=== PATIENT | female | born 1990 | race Two or more races ===

== ENCOUNTER 2022-10-06 10:47 | Inpatient (IN) | payer MEDICAID, OTHER ==
[~2022-10-06] VITALS: Ht 154.9 cm; Wt 50.0 kg
[2022-10-06] MEDS ORDERED: SODIUM CHLORIDE 0.9% 1,000 ML IV ONE ×2 (11:15→14:00)
[2022-10-06 11:49] LABS: Albumin 2.3 g/dL (3.4-5.0); Calcium 7.7 mg/dL (8.5-10.1); Potassium 4.7 mmol/L (3.5-5.1)
[2022-10-06 11:52] LABS: BUN/Creatinine Ratio 34.1; Bilirubin, Total 0.4 mg/dL (0.2-1.0); Total Protein 5.9 g/dL (6.4-8.2)
[2022-10-06 12:19] LABS: Hemoglobin 11.5 g/dL (12.2-16.2); Red Blood Cells 3.73 10^6/uL (4.0-5.20); White Blood Cell 8.2 10^3/uL (4.4-10.8)
[2022-10-06 12:23] LABS: Red Cell Distribution Width 20.7 % (11.8-14.3)
[2022-10-06 12:24] LABS: Basophils % (manual) 0 (0.0-2.0); Blast Cells 0; Eosinophils % (manual) 0 (0-7); Promyelocytes % 0; Reactive Lymphocytes 0
[2022-10-06 13:46] LABS: Band Neutrophils % (manual) 51; Lymphocytes % (manual) 7 (10.0-50.0); Metamyelocytes % 3; Monocytes % (manual) 9 (0-12); Myelocytes % 4
[2022-10-06] MEDS ORDERED: ALBUMIN 25% 100 ML IV ONE ×2 (14:07→14:15)
[2022-10-06] MEDS ORDERED: NOREPINEPHRINE 8 MG/250ML KIT 250 ML IV ONE (15:01)
[2022-10-06] MEDS: NOREPINEPHRINE 8 MG/250ML KIT 250 ML IV SCH (15:28)
[2022-10-06 15:43] LABS: Basophils # (auto) 0 10 ^3/uL (0-0.2); Basophils % (auto) 0.1 % (0.0-2.0); Eosinophils # (auto) 0 10 ^3/uL (0-0.8); Hematocrit 27.3 % (36.0-46.0); Hemoglobin 8.8 g/dL (12.2-16.2); Lymphocytes # (auto) 0.7 10 ^3/uL (0.4-5.4); Lymphocytes % (auto) 11.6 % (10.0-50.0); Mean Corpuscular Hemoglobin 30.6 pg (28.0-32.0); Mean Corpuscular Hgb Conc. 32.3 g/dL (32.0-36.0); Mean Corpuscular Volume 94.8 fL (80.0-100.0); Monocytes # (auto) 0.4 10 ^3/uL (0-1.3); Monocytes % (auto) 5.8 % (0.0-12.0); Neutrophils # (auto) 5.3 10 ^3/uL (1.6-8.6); Neutrophils % (auto) 82.5 % (37.0-80.0); Nucleated Red Blood Cells % 0.1 %; Red Blood Cells 2.87 10^6/uL (4.0-5.20); White Blood Cell 6.4 10^3/uL (4.4-10.8)
[2022-10-06 15:44] LABS: Red Cell Distribution Width 20.4 % (11.8-14.3)
[2022-10-06 16:10] LABS: INR 1.15 (0.9-1.15); Partial Thromboplastin Time 44.1 sec (24.6-33.4)
[2022-10-06] MEDS ORDERED: DOPamine 1600MCG/ML D5W 250 ML IV ONE (16:29)
[2022-10-06] MEDS: DOPamine 1600MCG/ML D5W 250 ML IV SCH (16:50)
[2022-10-06] MEDS ORDERED: DOCUSATE SOD 100 MG CAP PO PRN (17:30)
[2022-10-06] MEDS: SODIUM CHLORIDE 0.9% 1,000 ML IV SCH (17:30)
[2022-10-06] MEDS ORDERED: HYDROcodone-ACET 10/325MG TAB PO PRN (18:15)
[2022-10-06] MEDS: Ensure Enlive Chocolate 8oz Bottle PO SCH (18:40)
[2022-10-06 19:01] LABS: Urine Bacteria NONE SEEN /hpf (None Seen); Urine Blood Negative /uL (Negative); Urine Hyaline Cast FEW /lpf (0 - 2); Urine Mucus FEW (None Seen); Urine Specific Gravity 1.019 (1.001-1.035); Urine WBC 1 /hpf (0 - 5)
[2022-10-06] MEDS ORDERED: cefTRIAXone 1GM/50ML D5W 50 ML IV ONE (20:00)
[2022-10-06] MEDS: OXYCODONE W/ ACETAMINOPHEN 5/325MG TABLET PO PRN (21:03)
[2022-10-07] VITALS (46 sets, daily range): BP systolic 84–134; BP diastolic 57–88
[2022-10-07] MEDS: SODIUM CHLORIDE 0.9% 1,000 ML IV SCH (03:30)
[2022-10-07 06:02] LABS: Basophils # (auto) 0 10 ^3/uL (0-0.2); Basophils % (auto) 0.3 % (0.0-2.0); Eosinophils # (auto) 0 10 ^3/uL (0-0.8); Eosinophils % (auto) 0.1 % (0.0-7.0); Hemoglobin 10.3 g/dL (12.2-16.2); Lymphocytes # (auto) 0.6 10 ^3/uL (0.4-5.4); Lymphocytes % (auto) 18.3 % (10.0-50.0); Mean Corpuscular Hemoglobin 30.9 pg (28.0-32.0); Mean Corpuscular Hgb Conc. 32.1 g/dL (32.0-36.0); Mean Corpuscular Volume 96.3 fL (80.0-100.0); Monocytes # (auto) 0.3 10 ^3/uL (0-1.3); Monocytes % (auto) 9.6 % (0.0-12.0); Neutrophils # (auto) 2.2 10 ^3/uL (1.6-8.6); Neutrophils % (auto) 71.7 % (37.0-80.0); Nucleated Red Blood Cells % 0.1 %; Red Blood Cells 3.32 10^6/uL (4.0-5.20)
[2022-10-07 06:11] LABS: Albumin 2.4 g/dL (3.4-5.0); BUN/Creatinine Ratio 54.7; Calcium 7.6 mg/dL (8.5-10.1); Potassium 4.1 mmol/L (3.5-5.1)
[2022-10-07 06:14] LABS: Bilirubin, Total 0.7 mg/dL (0.2-1.0); Total Protein 5.6 g/dL (6.4-8.2)
[2022-10-07] MEDS: OXYCODONE W/ ACETAMINOPHEN 5/325MG TABLET PO PRN ×2 (06:39→15:11)
[2022-10-07 06:40] LABS: Red Cell Distribution Width 21.1 % (11.8-14.3)
[2022-10-07] MEDS: Ensure Enlive Chocolate 8oz Bottle PO SCH ×3 (08:23→18:00)
[2022-10-07] MEDS: cefTRIAXone 1GM/50ML D5W 50 ML IV SCH (09:20)
[2022-10-07] MEDS: PANTOPRAZOLE 40 MG/10 ML VIAL INJ IV SCH (09:20)
[2022-10-07] MEDS: ONDANSETRON HCL 4 MG/2 ML VIAL IV PRN ×3 (09:20→21:16)
[2022-10-07] MEDS: MORPHINE SULFATE INJ 2 MG/ml SYRG IV PRN (13:11)
[2022-10-07 14:56] LABS: Protein, Urine 61.8 mg/dL (0.0-11.9)
[2022-10-07] MEDS: NOREPINEPHRINE 8 MG/250ML KIT 250 ML IV SCH ×2 (15:09→20:25)
[2022-10-07] MEDS: DOPamine 1600MCG/ML D5W 250 ML IV SCH (15:10)
[2022-10-07] MEDS: SODIUM BICARBONATE 50ML VIAL 50 ML in SOD CHL 0.45% 1,000 ML IV SCH (16:36)
[2022-10-07] MEDS ORDERED: LEVO200T PO (19:58)
[2022-10-07] MEDS ORDERED: OLAN5TAB4 PO (19:58)
[2022-10-07] MEDS: oxyCODONE ER 10 MG TAB PO SCH (22:01)
[2022-10-08] VITALS (95 sets, daily range): BP systolic 65–123; BP diastolic 36–90
[2022-10-08] MEDS: NOREPINEPHRINE 8 MG/250ML KIT 250 ML IV SCH ×5 (02:00→22:14)
[2022-10-08] MEDS: OXYCODONE W/ ACETAMINOPHEN 5/325MG TABLET PO PRN ×2 (02:52→18:49)
[2022-10-08] MEDS: ONDANSETRON HCL 4 MG/2 ML VIAL IV PRN ×3 (02:58→15:14)
[2022-10-08] MEDS: DOPamine 1600MCG/ML D5W 250 ML IV SCH (04:40)
[2022-10-08] MEDS: SODIUM BICARBONATE 50ML VIAL 50 ML in SOD CHL 0.45% 1,000 ML IV SCH (04:40)
[2022-10-08] MEDS ORDERED: ALBUMIN 5% 250 ML IV ONE (07:00)
[2022-10-08 07:45] LABS: Basophils # (auto) 0 10 ^3/uL (0-0.2); Basophils % (auto) 0.2 % (0.0-2.0); Eosinophils # (auto) 0 10 ^3/uL (0-0.8); Eosinophils % (auto) 0.2 % (0.0-7.0); Hemoglobin 8.7 g/dL (12.2-16.2); Lymphocytes # (auto) 0.7 10 ^3/uL (0.4-5.4); Lymphocytes % (auto) 29.3 % (10.0-50.0); Mean Corpuscular Hemoglobin 29.7 pg (28.0-32.0); Mean Corpuscular Hgb Conc. 32.2 g/dL (32.0-36.0); Mean Corpuscular Volume 92.5 fL (80.0-100.0); Monocytes # (auto) 0.2 10 ^3/uL (0-1.3); Monocytes % (auto) 8.1 % (0.0-12.0); Neutrophils # (auto) 1.4 10 ^3/uL (1.6-8.6); Neutrophils % (auto) 62.2 % (37.0-80.0); Nucleated Red Blood Cells % 0.2 %; Red Blood Cells 2.92 10^6/uL (4.0-5.20); Red Cell Distribution Width 20.8 % (11.8-14.3); White Blood Cell 2.3 10^3/uL (4.4-10.8)
[2022-10-08 08:02] LABS: Albumin 2.2 g/dL (3.4-5.0); BUN/Creatinine Ratio 62.5; Calcium 7.5 mg/dL (8.5-10.1); Magnesium 1.7 mg/dL (1.6-2.6); Potassium 3.6 mmol/L (3.5-5.1)
[2022-10-08 08:05] LABS: Bilirubin, Total 1.4 mg/dL (0.2-1.0); Phosphorus 1.5 mg/dL (2.5-4.90); Total Protein 4.9 g/dL (6.4-8.2)
[2022-10-08] MEDS: cefTRIAXone 1GM/50ML D5W 50 ML IV SCH (09:13)
[2022-10-08] MEDS: Ensure Enlive Chocolate 8oz Bottle PO SCH ×3 (09:13→18:49)
[2022-10-08] MEDS ORDERED: POTASSIUM PHOSPHATE 22 MEQ in SODIUM CHL 0.9% 100 ML IV ONE (09:45)
[2022-10-08] MEDS: MAGNESIUM SULFATE 1GM/100ML 100 ML IV SCH ×2 (09:59→11:11)
[2022-10-08] MEDS: oxyCODONE ER 10 MG TAB PO SCH ×2 (10:00→21:57)
[2022-10-08] MEDS ORDERED: POTASSIUM PHOSPHATE 44 MEQ in D5W 5% 250 ML IV ONE (10:00)
[2022-10-08] MEDS: PANTOPRAZOLE 40 MG/10 ML VIAL INJ IV SCH (10:01)
[2022-10-08] MEDS: SODIUM CHLORIDE 0.9% 1,000 ML IV SCH ×2 (10:02→22:13)
[2022-10-08] MEDS ORDERED: LEVOTHYROXINE SODIUM 25 MCG TAB PO ONE (13:15)
[2022-10-08] MEDS ORDERED: LEVOTHYROXINE SODIUM 100 MCG TAB PO ONE (14:30)
[2022-10-08] MEDS: PROMETHAZINE HCL 25 MG/ML 1ML IV PRN ×2 (16:56→22:24)
[2022-10-08] MEDS: OLANZapine 5 MG TAB PO SCH (21:57)
[2022-10-09] VITALS (96 sets, daily range): BP systolic 83–109; BP diastolic 51–77
[2022-10-09] MEDS: NOREPINEPHRINE 8 MG/250ML KIT 250 ML IV SCH ×2 (04:42→20:36)
[2022-10-09] MEDS: OXYCODONE W/ ACETAMINOPHEN 5/325MG TABLET PO PRN ×2 (05:14→18:09)
[2022-10-09] MEDS: LEVOTHYROXINE SODIUM 100 MCG TAB PO SCH (07:51)
[2022-10-09] MEDS: Ensure Enlive Chocolate 8oz Bottle PO SCH ×3 (08:00→18:04)
[2022-10-09] MEDS: PANTOPRAZOLE 40 MG/10 ML VIAL INJ IV SCH (09:24)
[2022-10-09] MEDS: cefTRIAXone 1GM/50ML D5W 50 ML IV SCH (09:24)
[2022-10-09] MEDS: PROMETHAZINE HCL 25 MG/ML 1ML IV PRN ×3 (09:25→20:36)
[2022-10-09] MEDS: oxyCODONE ER 10 MG TAB PO SCH ×2 (09:26→21:58)
[2022-10-09 10:28] LABS: Calcium 6.8 mg/dL (8.5-10.1); Potassium 3.4 mmol/L (3.5-5.1)
[2022-10-09 10:31] LABS: BUN/Creatinine Ratio 46.4
[2022-10-09 12:00] LABS: Basophils # (auto) 0 10 ^3/uL (0-0.2); Eosinophils # (auto) 0 10 ^3/uL (0-0.8); Eosinophils % (auto) 0.1 % (0.0-7.0); Hematocrit 31.8 % (36.0-46.0); Lymphocytes # (auto) 0.7 10 ^3/uL (0.4-5.4); Lymphocytes % (auto) 20.5 % (10.0-50.0); Mean Corpuscular Hemoglobin 31.3 pg (28.0-32.0); Mean Corpuscular Hgb Conc. 31.3 g/dL (32.0-36.0); Mean Corpuscular Volume 99.9 fL (80.0-100.0); Monocytes # (auto) 0.4 10 ^3/uL (0-1.3); Monocytes % (auto) 13.1 % (0.0-12.0); Neutrophils # (auto) 2.2 10 ^3/uL (1.6-8.6); Neutrophils % (auto) 66.3 % (37.0-80.0); Nucleated Red Blood Cells % 0.2 %; Red Blood Cells 3.18 10^6/uL (4.0-5.20); White Blood Cell 3.4 10^3/uL (4.4-10.8)
[2022-10-09 12:19] LABS: Red Cell Distribution Width 21.7 % (11.8-14.3)
[2022-10-09] MEDS: POTASSIUM CHL 20MEQ/100ML 100 ML IV SCH ×2 (15:57→17:45)
[2022-10-09] MEDS: DOPamine 1600MCG/ML D5W 250 ML IV SCH (16:30)
[2022-10-09] MEDS: SODIUM CHLORIDE 0.9% 1,000 ML IV SCH (18:03)
[2022-10-09] MEDS: OLANZapine 5 MG TAB PO SCH (21:58)
[2022-10-10] VITALS (78 sets, daily range): BP systolic 82–107; BP diastolic 44–73
[2022-10-10] MEDS: MORPHINE SULFATE INJ 2 MG/ml SYRG IV PRN ×2 (01:17→05:37)
[2022-10-10] MEDS: PROMETHAZINE HCL 25 MG/ML 1ML IV PRN ×3 (01:20→15:01)
[2022-10-10] MEDS: SODIUM CHLORIDE 0.9% 1,000 ML IV SCH ×3 (02:50→14:59)
[2022-10-10 04:03] LABS: Anion Gap 6 (5-15); BUN/Creatinine Ratio 41.9; Basophils # (auto) 0 10 ^3/uL (0-0.2); Basophils % (auto) 0.1 % (0.0-2.0); Blood Urea Nitrogen 13 mg/dL (7-18); Calcium 7.7 mg/dL (8.5-10.1); Carbon Dioxide 21 mmol/L (21-32); Chloride 121 mmol/L (98-107); Eosinophils # (auto) 0 10 ^3/uL (0-0.8); Eosinophils % (auto) 0.1 % (0.0-7.0); GFR African American 315 mL/min; GFR Non-African American 261 mL/min; Glucose 69 mg/dL (74-106); Hematocrit 31.7 % (36.0-46.0); Lymphocytes # (auto) 0.7 10 ^3/uL (0.4-5.4); Lymphocytes % (auto) 14.3 % (10.0-50.0); Mean Corpuscular Hemoglobin 31.3 pg (28.0-32.0); Mean Corpuscular Hgb Conc. 31.4 g/dL (32.0-36.0); Mean Corpuscular Volume 99.9 fL (80.0-100.0); Monocytes # (auto) 0.4 10 ^3/uL (0-1.3); Monocytes % (auto) 8.8 % (0.0-12.0); Neutrophils # (auto) 3.5 10 ^3/uL (1.6-8.6); Neutrophils % (auto) 76.7 % (37.0-80.0); Nucleated Red Blood Cells % 0.1 %; Potassium 3.9 mmol/L (3.5-5.1); Red Blood Cells 3.18 10^6/uL (4.0-5.20); Sodium 148 mmol/L (136-145); White Blood Cell 4.6 10^3/uL (4.4-10.8)
[2022-10-10 04:10] LABS: Red Cell Distribution Width 21.6 % (11.8-14.3)
[2022-10-10] MEDS: LEVOTHYROXINE SODIUM 100 MCG TAB PO SCH (07:00)
[2022-10-10] MEDS: Ensure Enlive Chocolate 8oz Bottle PO SCH ×3 (08:00→18:02)
[2022-10-10] MEDS: oxyCODONE ER 10 MG TAB PO SCH ×2 (09:03→21:30)
[2022-10-10] MEDS: cefTRIAXone 1GM/50ML D5W 50 ML IV SCH (09:03)
[2022-10-10] MEDS: PANTOPRAZOLE 40 MG/10 ML VIAL INJ IV SCH (09:03)
[2022-10-10] MEDS ORDERED: LOPERAMIDE HCL 2 MG CAP/TAB PO ONE (12:15)
[2022-10-10] MEDS: DOPamine 1600MCG/ML D5W 250 ML IV SCH (16:30)
[2022-10-10] MEDS: LOPERAMIDE HCL 2 MG CAP/TAB PO PRN (18:01)
[2022-10-10] MEDS: OXYCODONE W/ ACETAMINOPHEN 5/325MG TABLET PO PRN (18:06)
[2022-10-10] MEDS: OLANZapine 5 MG TAB PO SCH (21:30)
[2022-10-11] MEDS: OXYCODONE W/ ACETAMINOPHEN 5/325MG TABLET PO PRN (01:53)
[2022-10-11] MEDS: PROMETHAZINE HCL 25 MG/ML 1ML IV PRN ×2 (02:02→20:00)
[2022-10-11] MEDS: LOPERAMIDE HCL 2 MG CAP/TAB PO PRN (02:29)
[2022-10-11] MEDS: LEVOTHYROXINE SODIUM 100 MCG TAB PO SCH (06:28)
[2022-10-11] MEDS: Ensure Enlive Chocolate 8oz Bottle PO SCH ×3 (08:00→18:00)
[2022-10-11] MEDS: SODIUM CHLORIDE 0.9% 1,000 ML IV SCH (08:15)
[2022-10-11] MEDS: cefTRIAXone 1GM/50ML D5W 50 ML IV SCH (10:11)
[2022-10-11] MEDS: PANTOPRAZOLE 40 MG/10 ML VIAL INJ IV SCH (10:12)
[2022-10-11] MEDS: oxyCODONE ER 10 MG TAB PO SCH ×2 (10:13→21:28)
[2022-10-11] MEDS: MORPHINE SULFATE INJ 2 MG/ml SYRG IV PRN (14:29)
[2022-10-11] MEDS: SOD CHL 0.45% 1,000 ML IV SCH (14:45)
[2022-10-11] MEDS: NOREPINEPHRINE 8 MG/250ML KIT 250 ML IV SCH (15:00)
[2022-10-11] MEDS: DOPamine 1600MCG/ML D5W 250 ML IV SCH (16:30)
[2022-10-11] MEDS: OLANZapine 5 MG TAB PO SCH (21:29)
[2022-10-11 22:00] VITALS: BP 93/56
[2022-10-12] MEDS: SOD CHL 0.45% 1,000 ML IV SCH ×2 (00:17→10:30)
[2022-10-12] MEDS: OXYCODONE W/ ACETAMINOPHEN 5/325MG TABLET PO PRN (01:47)
[2022-10-12 05:00] VITALS: BP 91/61
[2022-10-12 06:11] LABS: Hematocrit 25.5 % (36.0-46.0); Hemoglobin 8.1 g/dL (12.2-16.2); Mean Corpuscular Hgb Conc. 31.8 g/dL (32.0-36.0); Mean Corpuscular Volume 97.3 fL (80.0-100.0); Red Blood Cells 2.62 10^6/uL (4.0-5.20); Red Cell Distribution Width 21.9 % (11.8-14.3); White Blood Cell 7.2 10^3/uL (4.4-10.8)
[2022-10-12 06:13] LABS: Basophils % (manual) 0 (0.0-2.0); Blast Cells 0; Eosinophils % (manual) 0 (0-7); Promyelocytes % 0; Reactive Lymphocytes 0
[2022-10-12] MEDS: LEVOTHYROXINE SODIUM 100 MCG TAB PO SCH (06:30)
[2022-10-12] MEDS: PROMETHAZINE HCL 25 MG/ML 1ML IV PRN (06:30)
[2022-10-12 06:31] LABS: Potassium 4.1 mmol/L (3.5-5.1)
[2022-10-12 06:39] LABS: BUN/Creatinine Ratio 42.1; Bilirubin, Total 2.2 mg/dL (0.2-1.0); Calcium 7.3 mg/dL (8.5-10.1); Total Protein 4.9 g/dL (6.4-8.2)
[2022-10-12 08:59] LABS: Band Neutrophils % (manual) 24; Lymphocytes % (manual) 7 (10.0-50.0); Metamyelocytes % 2; Monocytes % (manual) 2 (0-12); Myelocytes % 1
[2022-10-12 09:00] VITALS: BP 93/58
[2022-10-12] MEDS: PANTOPRAZOLE 40 MG/10 ML VIAL INJ IV SCH (09:22)
[2022-10-12] MEDS: cefTRIAXone 1GM/50ML D5W 50 ML IV SCH (09:22)
[2022-10-12] MEDS: oxyCODONE ER 10 MG TAB PO SCH ×2 (09:22→21:34)
[2022-10-12] MEDS: Ensure Enlive Chocolate 8oz Bottle PO SCH ×3 (09:23→18:00)
[2022-10-12] MEDS: LOPERAMIDE 1 mg/7.5ml ORAL soln PO PRN (09:24)
[2022-10-12 13:00] VITALS: BP 95/59
[2022-10-12 13:55] LABS: % Iron Saturation 26.8 % (15-50)
[2022-10-12] MEDS: MORPHINE SULFATE INJ 2 MG/ml SYRG IV PRN ×2 (13:57→20:50)
[2022-10-12] MEDS: D5W/SOD CHL 0.45% 1,000 ML IV SCH (14:06)
[2022-10-12 17:00] VITALS: BP 90/52
[2022-10-12] MEDS: OLANZapine 5 MG TAB PO SCH (21:35)
[2022-10-12 22:00] VITALS: BP 90/57
[2022-10-12] MEDS ORDERED: LOPERAMIDE HCL 2 MG CAP/TAB ONE (23:48)
[2022-10-13] MEDS: LOPERAMIDE 1 mg/7.5ml ORAL soln PO PRN (00:08)
[2022-10-13 05:00] VITALS: BP 83/49
[2022-10-13] MEDS: LEVOTHYROXINE SODIUM 100 MCG TAB PO SCH (06:08)
[2022-10-13] MEDS: MORPHINE SULFATE INJ 2 MG/ml SYRG IV PRN (06:08)
[2022-10-13 09:00] VITALS: BP 89/54
[2022-10-13] MEDS: PANTOPRAZOLE 40 MG/10 ML VIAL INJ IV SCH (09:25)
[2022-10-13] MEDS: cefTRIAXone 1GM/50ML D5W 50 ML IV SCH (09:25)
[2022-10-13] MEDS: oxyCODONE ER 10 MG TAB PO SCH ×2 (09:26→22:01)
[2022-10-13] MEDS: Ensure Enlive Chocolate 8oz Bottle PO SCH ×3 (09:31→18:07)
[2022-10-13] MEDS: D5W/SOD CHL 0.45% 1,000 ML IV SCH ×3 (12:23→22:21)
[2022-10-13 13:00] VITALS: BP 85/53
[2022-10-13] MEDS: PROMETHAZINE HCL 25 MG/ML 1ML IV PRN ×2 (13:37→22:12)
[2022-10-13] MEDS: OXYCODONE W/ ACETAMINOPHEN 5/325MG TABLET PO PRN (13:38)
[2022-10-13 17:00] VITALS: BP 80/59
[2022-10-13] MEDS ORDERED: D5W/SOD CHL 0.45% 250 ML IV ONE (17:30)
[2022-10-13 22:00] VITALS: BP 88/57
[2022-10-13] MEDS: OLANZapine 5 MG TAB PO SCH (22:01)
[2022-10-14] VITALS (51 sets, daily range): BP systolic 78–99; BP diastolic 47–68
[2022-10-14] MEDS: OXYCODONE W/ ACETAMINOPHEN 5/325MG TABLET PO PRN ×2 (02:50→20:06)
[2022-10-14] MEDS: PROMETHAZINE HCL 25 MG/ML 1ML IV PRN ×2 (03:01→10:14)
[2022-10-14] MEDS: D5W/SOD CHL 0.45% 1,000 ML IV SCH ×2 (06:00→07:54)
[2022-10-14] MEDS: LEVOTHYROXINE SODIUM 100 MCG TAB PO SCH (06:28)
[2022-10-14] MEDS: PANTOPRAZOLE 40 MG/10 ML VIAL INJ IV SCH (10:09)
[2022-10-14] MEDS: Ensure Enlive Chocolate 8oz Bottle PO SCH ×3 (10:09→18:08)
[2022-10-14] MEDS: cefTRIAXone 1GM/50ML D5W 50 ML IV SCH (10:09)
[2022-10-14] MEDS: oxyCODONE ER 10 MG TAB PO SCH ×2 (10:09→21:52)
[2022-10-14] MEDS: NOREPINEPHRINE 8 MG/250ML KIT 250 ML IV SCH (10:33)
[2022-10-14] MEDS: MORPHINE SULFATE INJ 2 MG/ml SYRG IV PRN (13:06)
[2022-10-14 16:28] LABS: Hematocrit 24.5 % (36.0-46.0); Hemoglobin 8.3 g/dL (12.2-16.2); Mean Corpuscular Hemoglobin 31.5 pg (28.0-32.0); Mean Corpuscular Hgb Conc. 33.8 g/dL (32.0-36.0); Mean Corpuscular Volume 93.2 fL (80.0-100.0); Red Blood Cells 2.63 10^6/uL (4.0-5.20); White Blood Cell 6.9 10^3/uL (4.4-10.8)
[2022-10-14 16:29] LABS: Red Cell Distribution Width 21.7 % (11.8-14.3)
[2022-10-14 16:31] LABS: Basophils % (manual) 0 (0.0-2.0); Blast Cells 0; Eosinophils % (manual) 0 (0-7); Metamyelocytes % 0; Myelocytes % 0; Promyelocytes % 0; Reactive Lymphocytes 0
[2022-10-14 16:37] LABS: BUN/Creatinine Ratio 31.7; Calcium 7.6 mg/dL (8.5-10.1); Potassium 3.4 mmol/L (3.5-5.1)
[2022-10-14 17:11] LABS: Band Neutrophils % (manual) 4; Lymphocytes % (manual) 8 (10.0-50.0); Monocytes % (manual) 4 (0-12)
[2022-10-14] MEDS ORDERED: NEOMYCIN-BACITRACIN-POLYM UNITDOSE PKG TOP OINT TOP ONE (19:00)
[2022-10-14] MEDS ORDERED: NEOMYCIN-BACITRACIN-POLYM UNITDOSE PKG TOP OINT TOP SCH (19:15)
[2022-10-14] MEDS: OLANZapine 5 MG TAB PO SCH (21:52)
[2022-10-14] MEDS: LOPERAMIDE 1 mg/7.5ml ORAL soln PO PRN (21:57)
[2022-10-15] VITALS (93 sets, daily range): BP systolic 79–117; BP diastolic 45–87
[2022-10-15] MEDS: D5W/SOD CHL 0.45% 1,000 ML IV SCH ×3 (02:17→21:33)
[2022-10-15] MEDS: LEVOTHYROXINE SODIUM 100 MCG TAB PO SCH (06:40)
[2022-10-15] MEDS: MORPHINE SULFATE INJ 2 MG/ml SYRG IV PRN ×2 (06:44→20:17)
[2022-10-15 06:46] LABS: BUN/Creatinine Ratio 39.1; Calcium 7.5 mg/dL (8.5-10.1)
[2022-10-15 07:04] LABS: Hemoglobin 7.7 g/dL (12.2-16.2); White Blood Cell 5.8 10^3/uL (4.4-10.8)
[2022-10-15 07:06] LABS: Hematocrit 23.5 % (36.0-46.0); Mean Corpuscular Hemoglobin 30.7 pg (28.0-32.0); Mean Corpuscular Hgb Conc. 32.9 g/dL (32.0-36.0); Mean Corpuscular Volume 93.5 fL (80.0-100.0); Red Blood Cells 2.51 10^6/uL (4.0-5.20)
[2022-10-15 07:09] LABS: Red Cell Distribution Width 21.9 % (11.8-14.3)
[2022-10-15 07:10] LABS: Basophils % (manual) 0 (0.0-2.0); Blast Cells 0; Eosinophils % (manual) 0 (0-7); Metamyelocytes % 0; Myelocytes % 0; Promyelocytes % 0; Reactive Lymphocytes 0
[2022-10-15 08:38] LABS: Band Neutrophils % (manual) 8; Lymphocytes % (manual) 18 (10.0-50.0); Monocytes % (manual) 7 (0-12)
[2022-10-15] MEDS: Ensure Enlive Chocolate 8oz Bottle PO SCH ×3 (08:46→18:00)
[2022-10-15] MEDS: OXYCODONE W/ ACETAMINOPHEN 5/325MG TABLET PO PRN ×2 (08:46→13:26)
[2022-10-15] MEDS: cefTRIAXone 1GM/50ML D5W 50 ML IV SCH (08:46)
[2022-10-15] MEDS: PANTOPRAZOLE 40 MG/10 ML VIAL INJ IV SCH (08:46)
[2022-10-15] MEDS: PROMETHAZINE HCL 25 MG/ML 1ML IV PRN (08:46)
[2022-10-15] MEDS: oxyCODONE ER 10 MG TAB PO SCH ×2 (09:36→22:13)
[2022-10-15] MEDS: NOREPINEPHRINE 8 MG/250ML KIT 250 ML IV SCH (09:37)
[2022-10-15] MEDS: ONDANSETRON HCL 4 MG/2 ML VIAL IV PRN ×2 (13:26→20:04)
[2022-10-15 15:14] LABS: INR 1.13 (0.9-1.15); Partial Thromboplastin Time 34.2 sec (24.6-33.4)
[2022-10-15] MEDS: OLANZapine 5 MG TAB PO SCH (22:13)
[2022-10-16] VITALS (96 sets, daily range): BP systolic 84–109; BP diastolic 46–75
[2022-10-16] MEDS: MORPHINE SULFATE INJ 2 MG/ml SYRG IV PRN ×4 (01:24→19:55)
[2022-10-16] MEDS: LEVOTHYROXINE SODIUM 100 MCG TAB PO SCH (06:48)
[2022-10-16 07:05] LABS: BUN/Creatinine Ratio 35.6; Calcium 7.3 mg/dL (8.5-10.1); Potassium 3.2 mmol/L (3.5-5.1)
[2022-10-16] MEDS: cefTRIAXone 1GM/50ML D5W 50 ML IV SCH (08:28)
[2022-10-16] MEDS: Ensure Enlive Chocolate 8oz Bottle PO SCH ×3 (08:28→18:04)
[2022-10-16] MEDS: D5W/SOD CHL 0.45% 1,000 ML IV SCH ×2 (08:29→18:00)
[2022-10-16] MEDS: PANTOPRAZOLE 40 MG/10 ML VIAL INJ IV SCH (09:30)
[2022-10-16] MEDS: oxyCODONE ER 10 MG TAB PO SCH ×2 (09:30→22:00)
[2022-10-16] MEDS: ONDANSETRON HCL 4 MG/2 ML VIAL IV PRN ×3 (09:31→19:53)
[2022-10-16] MEDS: NOREPINEPHRINE 8 MG/250ML KIT 250 ML IV SCH ×2 (10:00→13:05)
[2022-10-16 10:28] LABS: Magnesium 1.9 mg/dL (1.6-2.6); Phosphorus 2.4 mg/dL (2.5-4.90)
[2022-10-16] MEDS ORDERED: SODIUM PHOSP 40 MEQ in D5W 5% 250 ML IV ONE (11:00)
[2022-10-16] MEDS: POTASSIUM CHL 20MEQ/100ML 100 ML IV SCH ×2 (11:38→12:55)
[2022-10-16] MEDS: ALBUMIN 25% 100 ML IV SCH ×2 (18:00→22:29)
[2022-10-16] MEDS ORDERED: TPN PER PHARMACY IV NR ×9 (20:00)
[2022-10-16] MEDS: OLANZapine 5 MG TAB PO SCH (22:02)
[2022-10-17] VITALS (98 sets, daily range): BP systolic 75–120; BP diastolic 43–84
[2022-10-17 04:16] LABS: White Blood Cell 2.7 10^3/uL (4.4-10.8)
[2022-10-17 04:18] LABS: Hematocrit 16.9 % (36.0-46.0); Mean Corpuscular Hemoglobin 31.2 pg (28.0-32.0); Mean Corpuscular Hgb Conc. 34.1 g/dL (32.0-36.0); Mean Corpuscular Volume 91.3 fL (80.0-100.0); Red Blood Cells 1.86 10^6/uL (4.0-5.20)
[2022-10-17 04:22] LABS: Red Cell Distribution Width 22.4 % (11.8-14.3)
[2022-10-17 04:24] LABS: Hemoglobin 5.8 g/dL (12.2-16.2)
[2022-10-17 04:27] LABS: Basophils % (manual) 0 (0.0-2.0); Blast Cells 0; Eosinophils % (manual) 0 (0-7); Metamyelocytes % 0; Myelocytes % 0; Promyelocytes % 0; Reactive Lymphocytes 0
[2022-10-17] MEDS: LEVOTHYROXINE SODIUM 100 MCG TAB PO SCH (06:24)
[2022-10-17] MEDS: ALBUMIN 25% 100 ML IV SCH (06:24)
[2022-10-17 07:22] LABS: Albumin 2.6 g/dL (3.4-5.0); Magnesium 1.9 mg/dL (1.6-2.6); Potassium 3.2 mmol/L (3.5-5.1)
[2022-10-17 07:23] LABS: Band Neutrophils % (manual) 24; Lymphocytes % (manual) 30 (10.0-50.0); Monocytes % (manual) 7 (0-12)
[2022-10-17 07:25] LABS: Bilirubin, Total 2.9 mg/dL (0.2-1.0); Phosphorus 2.4 mg/dL (2.5-4.90); Total Protein 4.7 g/dL (6.4-8.2)
[2022-10-17] MEDS ORDERED: POTASSIUM PHOSPHATE 44 MEQ in D5W 5% 250 ML IV ONE (09:00)
[2022-10-17] MEDS ORDERED: CALCIUM GLUC 1,000mg/50ml-NS 50 ML IV ONE (09:00)
[2022-10-17] MEDS: Ensure Enlive Chocolate 8oz Bottle PO SCH ×3 (09:37→18:00)
[2022-10-17] MEDS: ONDANSETRON HCL 4 MG/2 ML VIAL IV PRN ×2 (09:38→15:57)
[2022-10-17] MEDS: PANTOPRAZOLE 40 MG/10 ML VIAL INJ IV SCH (09:38)
[2022-10-17] MEDS: oxyCODONE ER 10 MG TAB PO SCH ×2 (09:39→22:05)
[2022-10-17] MEDS: LOPERAMIDE 1 mg/7.5ml ORAL soln PO PRN (10:36)
[2022-10-17] MEDS ORDERED: DEXTROSE (50%) 50ML SYRG IV SCH (12:00)
[2022-10-17] MEDS: InsuLIN REG 1unit/0.01ml Soln (100units/ml) SC SCH ×2 (12:00→18:06)
[2022-10-17] MEDS: ACCU-CHEK COMFORT CURVE STRIP VI SCH ×2 (12:01→18:01)
[2022-10-17] MEDS: MORPHINE SULFATE INJ 2 MG/ml SYRG IV PRN ×2 (13:31→18:00)
[2022-10-17] MEDS: NOREPINEPHRINE 8 MG/250ML KIT 250 ML IV SCH (20:00)
[2022-10-17] MEDS ORDERED: TPN PER PHARMACY IV NR ×17 (20:00)
[2022-10-17] MEDS: OXYCODONE W/ ACETAMINOPHEN 5/325MG TABLET PO PRN (20:06)
[2022-10-17] MEDS: OLANZapine 5 MG TAB PO SCH (22:04)
[2022-10-18] VITALS (91 sets, daily range): BP systolic 87–117; BP diastolic 36–84
[2022-10-18] MEDS: ACCU-CHEK COMFORT CURVE STRIP VI SCH ×5 (00:08→23:47)
[2022-10-18] MEDS: MORPHINE SULFATE INJ 2 MG/ml SYRG IV PRN ×4 (01:05→19:58)
[2022-10-18 04:18] LABS: Hematocrit 33.2 % (36.0-46.0); Hemoglobin 11.4 g/dL (12.2-16.2); Mean Corpuscular Hemoglobin 30.1 pg (28.0-32.0); Mean Corpuscular Hgb Conc. 34.3 g/dL (32.0-36.0); Mean Corpuscular Volume 87.7 fL (80.0-100.0); Red Blood Cells 3.78 10^6/uL (4.0-5.20); Red Cell Distribution Width 17.7 % (11.8-14.3); White Blood Cell 4.4 10^3/uL (4.4-10.8)
[2022-10-18 04:23] LABS: Basophils % (manual) 0 (0.0-2.0); Blast Cells 0; Metamyelocytes % 0; Myelocytes % 0; Promyelocytes % 0; Reactive Lymphocytes 0
[2022-10-18 04:33] LABS: Albumin 2.2 g/dL (3.4-5.0); BUN/Creatinine Ratio 18.9; Calcium 7.1 mg/dL (8.5-10.1); Magnesium 2.2 mg/dL (1.6-2.6); Potassium 3.6 mmol/L (3.5-5.1)
[2022-10-18 04:36] LABS: Bilirubin, Total 4.7 mg/dL (0.2-1.0); Phosphorus 2.3 mg/dL (2.5-4.90); Total Protein 4.7 g/dL (6.4-8.2)
[2022-10-18] MEDS: InsuLIN REG 1unit/0.01ml Soln (100units/ml) SC SCH ×5 (05:57→23:48)
[2022-10-18] MEDS: ONDANSETRON HCL 4 MG/2 ML VIAL IV PRN ×3 (06:08→20:08)
[2022-10-18] MEDS: LEVOTHYROXINE SODIUM 100 MCG TAB PO SCH (06:14)
[2022-10-18 06:41] LABS: Band Neutrophils % (manual) 11; Eosinophils % (manual) 1 (0-7); Lymphocytes % (manual) 15 (10.0-50.0); Monocytes % (manual) 6 (0-12)
[2022-10-18] MEDS: Ensure Enlive Chocolate 8oz Bottle PO SCH ×3 (09:48→18:01)
[2022-10-18] MEDS: PANTOPRAZOLE 40 MG/10 ML VIAL INJ IV SCH (09:48)
[2022-10-18] MEDS: oxyCODONE ER 10 MG TAB PO SCH ×2 (09:49→21:33)
[2022-10-18] MEDS ORDERED: TPN PER PHARMACY 0 ML IV SCH (11:45)
[2022-10-18] MEDS ORDERED: TPN PER PHARMACY IV NR ×8 (20:00)
[2022-10-18] MEDS: OLANZapine 5 MG TAB PO SCH (21:33)
[2022-10-18] MEDS ORDERED: TEMAZEPAM 15 MG CAP PO PRN (22:00)
[2022-10-19] VITALS (83 sets, daily range): BP systolic 77–113; BP diastolic 44–91
[2022-10-19] MEDS: ONDANSETRON HCL 4 MG/2 ML VIAL IV PRN ×5 (00:14→22:35)
[2022-10-19] MEDS: MORPHINE SULFATE INJ 2 MG/ml SYRG IV PRN ×3 (00:14→16:24)
[2022-10-19 05:10] LABS: Albumin 2.2 g/dL (3.4-5.0); Calcium 7.5 mg/dL (8.5-10.1); Magnesium 2.7 mg/dL (1.6-2.6); Potassium 3.1 mmol/L (3.5-5.1)
[2022-10-19] MEDS: ACCU-CHEK COMFORT CURVE STRIP VI SCH ×3 (05:17→18:58)
[2022-10-19] MEDS: InsuLIN REG 1unit/0.01ml Soln (100units/ml) SC SCH ×3 (05:18→18:59)
[2022-10-19 05:27] LABS: BUN/Creatinine Ratio 24.4; Bilirubin, Total 4.6 mg/dL (0.2-1.0); Phosphorus 2.2 mg/dL (2.5-4.90)
[2022-10-19] MEDS: NOREPINEPHRINE 8 MG/250ML KIT 250 ML IV SCH (05:30)
[2022-10-19 05:32] LABS: Basophils # (auto) 0 10 ^3/uL (0-0.2); Basophils % (auto) 0.2 % (0.0-2.0); Eosinophils # (auto) 0 10 ^3/uL (0-0.8); Eosinophils % (auto) 0.2 % (0.0-7.0); Hematocrit 34.6 % (36.0-46.0); Hemoglobin 11.5 g/dL (12.2-16.2); Lymphocytes # (auto) 0.9 10 ^3/uL (0.4-5.4); Lymphocytes % (auto) 16.1 % (10.0-50.0); Mean Corpuscular Hemoglobin 29.5 pg (28.0-32.0); Mean Corpuscular Hgb Conc. 33.1 g/dL (32.0-36.0); Mean Corpuscular Volume 89.1 fL (80.0-100.0); Monocytes # (auto) 0.4 10 ^3/uL (0-1.3); Monocytes % (auto) 7.5 % (0.0-12.0); Neutrophils # (auto) 4.1 10 ^3/uL (1.6-8.6); Nucleated Red Blood Cells % 0.3 %; Red Blood Cells 3.88 10^6/uL (4.0-5.20); Red Cell Distribution Width 17.6 % (11.8-14.3); White Blood Cell 5.4 10^3/uL (4.4-10.8)
[2022-10-19] MEDS ORDERED: POTASSIUM CHL 20MEQ/100ML 100 ML IV ONE (06:30)
[2022-10-19] MEDS: LEVOTHYROXINE SODIUM 100 MCG TAB PO SCH (07:30)
[2022-10-19] MEDS: OXYCODONE W/ ACETAMINOPHEN 5/325MG TABLET PO PRN ×3 (07:31→19:04)
[2022-10-19] MEDS: Ensure Enlive Chocolate 8oz Bottle PO SCH ×3 (08:26→18:58)
[2022-10-19] MEDS: PANTOPRAZOLE 40 MG/10 ML VIAL INJ IV SCH (10:02)
[2022-10-19] MEDS: oxyCODONE ER 10 MG TAB PO SCH ×2 (10:02→22:33)
[2022-10-19] MEDS ORDERED: BUPR10DI TOP (11:18)
[2022-10-19] MEDS ORDERED: ZOLPIDEM TARTRATE 5 MG TAB PO PRN ×2 (12:45→13:00)
[2022-10-19] MEDS ORDERED: TPN PER PHARMACY IV NR ×7 (20:00)
[2022-10-19] MEDS: OLANZapine 5 MG TAB PO SCH (22:34)
[2022-10-20] VITALS (52 sets, daily range): BP systolic 77–127; BP diastolic 45–90
[2022-10-20] MEDS: ACETAMINOPHEN 325 MG TAB PO PRN (04:22)
[2022-10-20 04:57] LABS: Basophils # (auto) 0 10 ^3/uL (0-0.2); Basophils % (auto) 0.2 % (0.0-2.0); Eosinophils # (auto) 0 10 ^3/uL (0-0.8); Eosinophils % (auto) 0.2 % (0.0-7.0); Hematocrit 32.8 % (36.0-46.0); Hemoglobin 10.8 g/dL (12.2-16.2); Lymphocytes # (auto) 0.6 10 ^3/uL (0.4-5.4); Lymphocytes % (auto) 9.1 % (10.0-50.0); Mean Corpuscular Hemoglobin 29.7 pg (28.0-32.0); Mean Corpuscular Volume 90.1 fL (80.0-100.0); Monocytes # (auto) 0.5 10 ^3/uL (0-1.3); Monocytes % (auto) 6.6 % (0.0-12.0); Neutrophils # (auto) 5.8 10 ^3/uL (1.6-8.6); Neutrophils % (auto) 83.9 % (37.0-80.0); Nucleated Red Blood Cells % 0.2 %; Red Blood Cells 3.64 10^6/uL (4.0-5.20); Red Cell Distribution Width 17.9 % (11.8-14.3); White Blood Cell 6.9 10^3/uL (4.4-10.8)
[2022-10-20] MEDS: InsuLIN REG 1unit/0.01ml Soln (100units/ml) SC SCH ×4 (06:00→17:39)
[2022-10-20] MEDS ORDERED: SODIUM CHLORIDE 0.9% 500 ML IV ONE ×3 (06:00→15:00)
[2022-10-20] MEDS: ACCU-CHEK COMFORT CURVE STRIP VI SCH ×4 (06:00→17:40)
[2022-10-20] MEDS: LEVOTHYROXINE SODIUM 100 MCG TAB PO SCH (06:37)
[2022-10-20] MEDS: Ensure Enlive Chocolate 8oz Bottle PO SCH ×3 (08:00→18:00)
[2022-10-20] MEDS: ONDANSETRON HCL 4 MG/2 ML VIAL IV PRN ×2 (08:34→16:08)
[2022-10-20] MEDS: OXYCODONE W/ ACETAMINOPHEN 5/325MG TABLET PO PRN ×2 (08:35→15:26)
[2022-10-20] MEDS: LOPERAMIDE 1 mg/7.5ml ORAL soln PO PRN ×2 (08:54→15:18)
[2022-10-20] MEDS: NOREPINEPHRINE 8 MG/250ML KIT 250 ML IV SCH ×2 (10:00→16:02)
[2022-10-20] MEDS: PANTOPRAZOLE 40 MG/10 ML VIAL INJ IV SCH (10:10)
[2022-10-20] MEDS: oxyCODONE ER 10 MG TAB PO SCH ×2 (10:10→22:02)
[2022-10-20 10:27] LABS: Albumin 2.1 g/dL (3.4-5.0); Calcium 7.6 mg/dL (8.5-10.1); Magnesium 2.6 mg/dL (1.6-2.6); Potassium 3.7 mmol/L (3.5-5.1)
[2022-10-20 10:41] LABS: BUN/Creatinine Ratio 40.7; Bilirubin, Total 3.6 mg/dL (0.2-1.0); Phosphorus 3.9 mg/dL (2.5-4.90); Total Protein 5.1 g/dL (6.4-8.2)
[2022-10-20] MEDS ORDERED: NOREPINEPHRINE 8 MG/250ML KIT 250 ML IV SCH (15:00)
[2022-10-20] MEDS ORDERED: ZOLPIDEM TARTRATE 5 MG TAB PO PRN (15:00)
[2022-10-20] MEDS ORDERED: [UNRECOGNIZED DRUG - OTHER] IV NR ×7 (20:00)
[2022-10-20] MEDS ORDERED: POTASSIUM PHOSPHATE IV NR ×7 (20:00)
[2022-10-20] MEDS ORDERED: TPN PER PHARMACY IV NR ×14 (20:00)
[2022-10-20] MEDS ORDERED: POTASSIUM CHLORIDE IV NR ×7 (20:00)
[2022-10-20] MEDS ORDERED: POTASSIUM ACETATE IV NR ×7 (20:00)
[2022-10-20] MEDS: MORPHINE SULFATE INJ 2 MG/ml SYRG IV PRN (20:24)
[2022-10-20] MEDS: OLANZapine 5 MG TAB PO SCH (22:01)
[2022-10-21] VITALS (84 sets, daily range): BP systolic 86–133; BP diastolic 32–87
[2022-10-21] MEDS: MORPHINE SULFATE INJ 2 MG/ml SYRG IV PRN ×4 (00:46→22:45)
[2022-10-21] MEDS: OXYCODONE W/ ACETAMINOPHEN 5/325MG TABLET PO PRN ×2 (02:43→06:34)
[2022-10-21] MEDS: NOREPINEPHRINE 8 MG/250ML KIT 250 ML IV SCH ×2 (02:49→18:35)
[2022-10-21 03:39] LABS: Hematocrit 34.2 % (36.0-46.0); Hemoglobin 11.2 g/dL (12.2-16.2); Mean Corpuscular Hgb Conc. 32.9 g/dL (32.0-36.0); Mean Corpuscular Volume 91.1 fL (80.0-100.0); Red Blood Cells 3.75 10^6/uL (4.0-5.20); White Blood Cell 9.8 10^3/uL (4.4-10.8)
[2022-10-21 03:54] LABS: Albumin 2.4 g/dL (3.4-5.0); Magnesium 2.7 mg/dL (1.6-2.6); Potassium 4.3 mmol/L (3.5-5.1)
[2022-10-21 04:09] LABS: Bilirubin, Total 5.1 mg/dL (0.2-1.0); Phosphorus 4.8 mg/dL (2.5-4.90); Total Protein 5.5 g/dL (6.4-8.2)
[2022-10-21 04:14] LABS: Basophils % (manual) 0 (0.0-2.0); Blast Cells 0; Eosinophils % (manual) 0 (0-7); Myelocytes % 0; Promyelocytes % 0; Reactive Lymphocytes 0
[2022-10-21] MEDS: InsuLIN REG 1unit/0.01ml Soln (100units/ml) SC SCH ×5 (06:00→23:48)
[2022-10-21] MEDS: ACCU-CHEK COMFORT CURVE STRIP VI SCH ×5 (06:21→23:31)
[2022-10-21] MEDS: LEVOTHYROXINE SODIUM 100 MCG TAB PO SCH (06:48)
[2022-10-21 06:59] LABS: Band Neutrophils % (manual) 34; Lymphocytes % (manual) 12 (10.0-50.0); Metamyelocytes % 1; Monocytes % (manual) 12 (0-12)
[2022-10-21] MEDS: Ensure Enlive Chocolate 8oz Bottle PO SCH ×3 (08:00→18:00)
[2022-10-21] MEDS: ONDANSETRON HCL 4 MG/2 ML VIAL IV PRN (08:13)
[2022-10-21] MEDS ORDERED: ALBUMIN 25% 100 ML IV SCH ×2 (09:00→16:00)
[2022-10-21] MEDS: oxyCODONE ER 10 MG TAB PO SCH (10:44)
[2022-10-21] MEDS: PANTOPRAZOLE 40 MG/10 ML VIAL INJ IV SCH (10:44)
[2022-10-21] MEDS ORDERED: LORazepam 2MG/ML-1ML VIAL IV PRN (11:15)
[2022-10-21] MEDS ORDERED: HYDROmorphone HCL 2 MG/ML VL/or syr IV PRN (11:15)
[2022-10-21] MEDS ORDERED: VANCOMYCIN PER PHARMACY 0 MG IV SCH (12:15)
[2022-10-21] MEDS ORDERED: FUROSEMIDE 20 MG/2 ML VIAL IV ONE ×2 (12:45→18:45)
[2022-10-21] MEDS ORDERED: VANCOMYCIN 1GM/250ML 250 ML IV ONE (13:00)
[2022-10-21] MEDS ORDERED: NALOXONE HCL 0.4 MG/ML VIAL ONE ×2 (13:14→13:17)
[2022-10-21] MEDS ORDERED: FLUMAZENIL 0.1 MG/ML INJ 10ML MDV IV ONE ×3 (13:15→13:45)
[2022-10-21] MEDS ORDERED: NALOXONE HCL 0.4 MG/ML VIAL IV ONE (13:40)
[2022-10-21] MEDS ORDERED: ETOMIDATE (2MG/ML) 20ML VIAL IV ONE (13:53)
[2022-10-21] MEDS ORDERED: ROCURONIUM 10MG/ML 10ML VIAL IV ONE (13:54)
[2022-10-21] MEDS ORDERED: TPN PER PHARMACY IV NR ×5 (20:00)
[2022-10-21] MEDS: OLANZapine 5 MG TAB PO SCH (21:55)
[2022-10-21] MEDS ORDERED: MELATONIN 5 MG TAB PO PRN (22:00)
[2022-10-21] MEDS: ALBUMIN 25% 100 ML IV SCH ×2 (22:44→23:48)
[2022-10-21] MEDS: VANCOMYCIN 750mg/250ml 250 ML IV SCH (23:30)
[2022-10-22] VITALS (87 sets, daily range): BP systolic 89–122; BP diastolic 41–87
[2022-10-22] MEDS: MORPHINE SULFATE INJ 2 MG/ml SYRG IV PRN ×5 (02:39→23:16)
[2022-10-22 04:13] LABS: Basophils # (auto) 0 10 ^3/uL (0-0.2); Basophils % (auto) 0.3 % (0.0-2.0); Eosinophils # (auto) 0 10 ^3/uL (0-0.8); Hematocrit 30.2 % (36.0-46.0); Hemoglobin 9.9 g/dL (12.2-16.2); Lymphocytes # (auto) 0.7 10 ^3/uL (0.4-5.4); Lymphocytes % (auto) 4.8 % (10.0-50.0); Mean Corpuscular Hemoglobin 29.5 pg (28.0-32.0); Mean Corpuscular Hgb Conc. 32.8 g/dL (32.0-36.0); Mean Corpuscular Volume 89.9 fL (80.0-100.0); Monocytes # (auto) 0.5 10 ^3/uL (0-1.3); Monocytes % (auto) 3.8 % (0.0-12.0); Neutrophils # (auto) 12.4 10 ^3/uL (1.6-8.6); Neutrophils % (auto) 91.1 % (37.0-80.0); Red Blood Cells 3.36 10^6/uL (4.0-5.20); Red Cell Distribution Width 19.5 % (11.8-14.3); White Blood Cell 13.6 10^3/uL (4.4-10.8)
[2022-10-22] MEDS: NOREPINEPHRINE 8 MG/250ML KIT 250 ML IV SCH ×2 (04:15→14:53)
[2022-10-22 04:29] LABS: Albumin 2.2 g/dL (3.4-5.0); Calcium 7.6 mg/dL (8.5-10.1); Potassium 3.8 mmol/L (3.5-5.1)
[2022-10-22 04:46] LABS: BUN/Creatinine Ratio 48.1; Bilirubin, Total 4.4 mg/dL (0.2-1.0); Phosphorus 4.6 mg/dL (2.5-4.90); Total Protein 5.1 g/dL (6.4-8.2)
[2022-10-22] MEDS: InsuLIN REG 1unit/0.01ml Soln (100units/ml) SC SCH ×4 (06:00→23:18)
[2022-10-22] MEDS: ACCU-CHEK COMFORT CURVE STRIP VI SCH ×4 (06:05→23:19)
[2022-10-22] MEDS: LEVOTHYROXINE SODIUM 100 MCG TAB PO SCH (06:30)
[2022-10-22] MEDS: Ensure Enlive Chocolate 8oz Bottle PO SCH ×3 (08:12→18:00)
[2022-10-22] MEDS: ALBUMIN 25% 100 ML IV SCH ×2 (09:23→20:43)
[2022-10-22] MEDS: ONDANSETRON HCL 4 MG/2 ML VIAL IV PRN ×4 (09:39→23:20)
[2022-10-22] MEDS: PANTOPRAZOLE 40 MG/10 ML VIAL INJ IV SCH (09:39)
[2022-10-22] MEDS: VANCOMYCIN 750mg/250ml 250 ML IV SCH (09:52)
[2022-10-22] MEDS ORDERED: FUROSEMIDE 20 MG/2 ML VIAL IV SCH (10:00)
[2022-10-22] MEDS: ACETAMINOPHEN 325 MG TAB PO PRN (17:29)
[2022-10-22] MEDS ORDERED: TPN PER PHARMACY IV NR ×6 (20:00)
[2022-10-22] MEDS: OLANZapine 5 MG TAB PO SCH (21:32)
[2022-10-22] MEDS ORDERED: LORazepam 2MG/ML-1ML VIAL IV PRN ×2 (22:30)
[2022-10-23] VITALS (74 sets, daily range): BP systolic 77–125; BP diastolic 51–84
[2022-10-23] MEDS: HYDROcodone-ACET 5/325MG TAB PO PRN ×2 (00:52→08:49)
[2022-10-23] MEDS: ALBUMIN 25% 100 ML IV SCH (00:53)
[2022-10-23] MEDS: ACETAMINOPHEN 325 MG TAB PO PRN (02:51)
[2022-10-23 03:58] LABS: Basophils # (auto) 0 10 ^3/uL (0-0.2); Basophils % (auto) 0.1 % (0.0-2.0); Eosinophils # (auto) 0 10 ^3/uL (0-0.8); Hematocrit 28.9 % (36.0-46.0); Hemoglobin 9.5 g/dL (12.2-16.2); Lymphocytes # (auto) 0.8 10 ^3/uL (0.4-5.4); Lymphocytes % (auto) 5.3 % (10.0-50.0); Mean Corpuscular Hemoglobin 29.5 pg (28.0-32.0); Mean Corpuscular Hgb Conc. 33.1 g/dL (32.0-36.0); Mean Corpuscular Volume 89.2 fL (80.0-100.0); Monocytes # (auto) 0.8 10 ^3/uL (0-1.3); Monocytes % (auto) 5.3 % (0.0-12.0); Neutrophils % (auto) 89.3 % (37.0-80.0); Red Blood Cells 3.24 10^6/uL (4.0-5.20); Red Cell Distribution Width 19.4 % (11.8-14.3); White Blood Cell 15.7 10^3/uL (4.4-10.8)
[2022-10-23 04:02] LABS: Albumin 2.8 g/dL (3.4-5.0); Calcium 8.9 mg/dL (8.5-10.1); Magnesium 2.2 mg/dL (1.6-2.6); Potassium 3.4 mmol/L (3.5-5.1)
[2022-10-23 04:04] LABS: BUN/Creatinine Ratio 49.2
[2022-10-23 04:06] LABS: Bilirubin, Total 4.5 mg/dL (0.2-1.0); Phosphorus 2.9 mg/dL (2.5-4.90); Total Protein 6.3 g/dL (6.4-8.2)
[2022-10-23] MEDS: MORPHINE SULFATE INJ 2 MG/ml SYRG IV PRN ×2 (04:24→12:09)
[2022-10-23] MEDS: ONDANSETRON HCL 4 MG/2 ML VIAL IV PRN (04:25)
[2022-10-23] MEDS: InsuLIN REG 1unit/0.01ml Soln (100units/ml) SC SCH ×3 (06:00→18:00)
[2022-10-23] MEDS: ACCU-CHEK COMFORT CURVE STRIP VI SCH ×3 (06:13→18:00)
[2022-10-23] MEDS: LEVOTHYROXINE SODIUM 100 MCG TAB PO SCH (06:37)
[2022-10-23] MEDS: Ensure Enlive Chocolate 8oz Bottle PO SCH ×3 (08:00→18:00)
[2022-10-23] MEDS ORDERED: POTASSIUM CHL 20MEQ/100ML 100 ML IV ONE (08:45)
[2022-10-23] MEDS: PANTOPRAZOLE 40 MG/10 ML VIAL INJ IV SCH (09:39)
[2022-10-23] MEDS: OXYCODONE W/ ACETAMINOPHEN 5/325MG TABLET PO PRN ×2 (11:14→22:10)
[2022-10-23 14:17] LABS: INR 1.13 (0.9-1.15)
[2022-10-23] MEDS: NOREPINEPHRINE 8 MG/250ML KIT 250 ML IV SCH (15:00)
[2022-10-23] MEDS ORDERED: ALBUMIN 5% 250 ML IV ONE (16:00)
[2022-10-23] MEDS: HYDROmorphone HCL 2 MG/ML VL/or syr IV PRN (18:47)
[2022-10-23] MEDS ORDERED: TPN PER PHARMACY IV NR ×7 (20:00)
[2022-10-23] MEDS: PROMETHAZINE HCL 25 MG/ML 1ML IV PRN (21:50)
[2022-10-24] VITALS (58 sets, daily range): BP systolic 65–120; BP diastolic 38–85
[2022-10-24] MEDS: ACCU-CHEK COMFORT CURVE STRIP VI SCH ×5 (01:10→23:25)
[2022-10-24] MEDS: LOPERAMIDE 1 mg/7.5ml ORAL soln PO PRN ×4 (02:00→13:33)
[2022-10-24] MEDS: HYDROmorphone HCL 2 MG/ML VL/or syr IV PRN ×5 (02:47→21:30)
[2022-10-24] MEDS: InsuLIN REG 1unit/0.01ml Soln (100units/ml) SC SCH ×5 (06:00→23:25)
[2022-10-24] MEDS: LEVOTHYROXINE SODIUM 100 MCG TAB PO SCH (07:00)
[2022-10-24] MEDS: Ensure Enlive Chocolate 8oz Bottle PO SCH ×3 (08:00→18:13)
[2022-10-24 08:01] LABS: Hemoglobin 10.8 g/dL (12.2-16.2); Mean Corpuscular Hemoglobin 29.9 pg (28.0-32.0); Mean Corpuscular Hgb Conc. 32.8 g/dL (32.0-36.0); Mean Corpuscular Volume 91.2 fL (80.0-100.0); Red Blood Cells 3.62 10^6/uL (4.0-5.20); Red Cell Distribution Width 19.8 % (11.8-14.3); White Blood Cell 19.3 10^3/uL (4.4-10.8)
[2022-10-24 08:22] LABS: Basophils % (manual) 0 (0.0-2.0); Blast Cells 0; Eosinophils % (manual) 0 (0-7); Metamyelocytes % 0; Myelocytes % 0; Promyelocytes % 0; Reactive Lymphocytes 0
[2022-10-24 08:31] LABS: Albumin 3.1 g/dL (3.4-5.0); Calcium 8.8 mg/dL (8.5-10.1); Magnesium 2.9 mg/dL (1.6-2.6); Potassium 3.4 mmol/L (3.5-5.1)
[2022-10-24 08:35] LABS: Bilirubin, Total 2.8 mg/dL (0.2-1.0); Total Protein 7.2 g/dL (6.4-8.2)
[2022-10-24 10:00] LABS: Band Neutrophils % (manual) 21; Lymphocytes % (manual) 5 (10.0-50.0); Monocytes % (manual) 4 (0-12)
[2022-10-24] MEDS ORDERED: POTASSIUM CHL 20MEQ/100ML 100 ML IV ONE (10:30)
[2022-10-24] MEDS: PANTOPRAZOLE 40 MG/10 ML VIAL INJ IV SCH (11:14)
[2022-10-24] MEDS: ALBUMIN 25% 100 ML IV SCH ×2 (13:18→20:18)
[2022-10-24] MEDS: ONDANSETRON HCL 4 MG/2 ML VIAL IV PRN ×3 (13:18→23:30)
[2022-10-24] MEDS: SODIUM CHLORIDE 0.9% 1,000 ML IV SCH (14:00)
[2022-10-24] MEDS ORDERED: MIDODRINE HCL 10 MG TAB PO ONE (14:00)
[2022-10-24] MEDS ORDERED: CHOLESTYRAMINE 4 GM POWDER PO ONE (15:00)
[2022-10-24] MEDS: NOREPINEPHRINE 8 MG/250ML KIT 250 ML IV SCH (15:00)
[2022-10-24] MEDS: fentaNYL 25MCG/HR 25 MCG/HR PAT TD SCH (15:17)
[2022-10-24] MEDS: MIDODRINE HCL 10 MG TAB PO SCH (17:57)
[2022-10-24] MEDS ORDERED: TPN PER PHARMACY IV NR ×6 (20:00)
[2022-10-24] MEDS: CHOLESTYRAMINE 4 GM POWDER PO SCH (23:00)
[2022-10-24] MEDS: LINEZOLID 600MG/300ML 300 ML IV SCH (23:26)
[2022-10-25] VITALS (39 sets, daily range): BP systolic 79–115; BP diastolic 48–77
[2022-10-25 04:00] LABS: Hematocrit 28.1 % (36.0-46.0); Mean Corpuscular Hemoglobin 29.3 pg (28.0-32.0); Mean Corpuscular Volume 91.3 fL (80.0-100.0); Red Blood Cells 3.08 10^6/uL (4.0-5.20); Red Cell Distribution Width 19.4 % (11.8-14.3); White Blood Cell 16.9 10^3/uL (4.4-10.8)
[2022-10-25 04:06] LABS: Basophils % (manual) 0 (0.0-2.0); Blast Cells 0; Eosinophils % (manual) 0 (0-7); Myelocytes % 0; Promyelocytes % 0; Reactive Lymphocytes 0
[2022-10-25] MEDS: ALBUMIN 25% 100 ML IV SCH (04:11)
[2022-10-25 04:17] LABS: Potassium 3.3 mmol/L (3.5-5.1)
[2022-10-25 04:27] LABS: Albumin 3.8 g/dL (3.4-5.0); BUN/Creatinine Ratio 62.4; Bilirubin, Total 2.4 mg/dL (0.2-1.0); Calcium 8.7 mg/dL (8.5-10.1); Magnesium 2.3 mg/dL (1.6-2.6); Phosphorus 2.3 mg/dL (2.5-4.90); Total Protein 7.3 g/dL (6.4-8.2)
[2022-10-25] MEDS: LOPERAMIDE 1 mg/7.5ml ORAL soln PO PRN ×2 (04:39→20:42)
[2022-10-25 05:13] LABS: Band Neutrophils % (manual) 7; Lymphocytes % (manual) 9 (10.0-50.0); Metamyelocytes % 1; Monocytes % (manual) 5 (0-12)
[2022-10-25] MEDS: ACCU-CHEK COMFORT CURVE STRIP VI SCH ×4 (05:59→23:52)
[2022-10-25] MEDS: MIDODRINE HCL 10 MG TAB PO SCH ×3 (05:59→18:28)
[2022-10-25] MEDS: InsuLIN REG 1unit/0.01ml Soln (100units/ml) SC SCH ×4 (05:59→23:52)
[2022-10-25] MEDS ORDERED: POTASSIUM CHLORIDE 60 MEQ, LIDOCAINE 1% (LOCAL ANESTH.) 6 ML in SODIUM CHL 0.9% 500 ML IV ONE (06:15)
[2022-10-25] MEDS: LEVOTHYROXINE SODIUM 100 MCG TAB PO SCH (06:56)
[2022-10-25] MEDS: Ensure Enlive Chocolate 8oz Bottle PO SCH ×3 (08:00→18:24)
[2022-10-25] MEDS: PANTOPRAZOLE 40 MG/10 ML VIAL INJ IV SCH (08:34)
[2022-10-25] MEDS: PROMETHAZINE HCL 25 MG/ML 1ML IV PRN (08:34)
[2022-10-25] MEDS: LINEZOLID 600MG/300ML 300 ML IV SCH (08:34)
[2022-10-25] MEDS: SODIUM CHLORIDE 0.9% 1,000 ML IV SCH (08:35)
[2022-10-25] MEDS ORDERED: SODIUM PHOSPHATES 20 MEQ in SODIUM CHL 0.9% 100 ML IV ONE (09:15)
[2022-10-25] MEDS: HYDROmorphone HCL 2 MG/ML VL/or syr IV PRN ×3 (09:44→20:42)
[2022-10-25] MEDS: CHOLESTYRAMINE 4 GM POWDER PO SCH ×2 (11:35→23:00)
[2022-10-25] MEDS: NOREPINEPHRINE 8 MG/250ML KIT 250 ML IV SCH (14:53)
[2022-10-25] MEDS ORDERED: BACTRIM 5MG/KG Q8HR PER RX 10 ML IV SCH (15:15)
[2022-10-25] MEDS: OXYCODONE W/ ACETAMINOPHEN 5/325MG TABLET PO PRN (16:41)
[2022-10-25] MEDS ORDERED: TPN PER PHARMACY IV NR ×6 (20:00)
[2022-10-25] MEDS: ONDANSETRON HCL 4 MG/2 ML VIAL IV PRN (20:42)
[2022-10-26] VITALS (21 sets, daily range): BP systolic 84–111; BP diastolic 42–73
[2022-10-26] MEDS: ONDANSETRON HCL 4 MG/2 ML VIAL IV PRN ×3 (00:52→16:45)
[2022-10-26] MEDS: OXYCODONE W/ ACETAMINOPHEN 5/325MG TABLET PO PRN ×3 (03:10→20:01)
[2022-10-26] MEDS: SODIUM CHLORIDE 0.9% 1,000 ML IV SCH (05:10)
[2022-10-26] MEDS: D5W 5% IV SCH ×2 (05:32→18:00)
[2022-10-26] MEDS: SULFAMETH TRIMETH IV SCH ×2 (05:32→18:00)
[2022-10-26] MEDS: MIDODRINE HCL 10 MG TAB PO SCH ×3 (05:33→18:00)
[2022-10-26] MEDS: InsuLIN REG 1unit/0.01ml Soln (100units/ml) SC SCH ×3 (06:00→18:00)
[2022-10-26] MEDS: ACCU-CHEK COMFORT CURVE STRIP VI SCH ×3 (06:00→18:23)
[2022-10-26 06:08] LABS: Albumin 3.4 g/dL (3.4-5.0); BUN/Creatinine Ratio 73.3; Calcium 8.5 mg/dL (8.5-10.1)
[2022-10-26 06:19] LABS: Bilirubin, Total 2.2 mg/dL (0.2-1.0); Magnesium 2.1 mg/dL (1.6-2.6); Phosphorus 1.8 mg/dL (2.5-4.90); Total Protein 7.1 g/dL (6.4-8.2)
[2022-10-26 06:25] LABS: Potassium 2.8 mmol/L (3.5-5.1)
[2022-10-26] MEDS: LEVOTHYROXINE SODIUM 100 MCG TAB PO SCH (06:43)
[2022-10-26] MEDS ORDERED: POTASSIUM EFFERVESENT TAB 25 MEQ PO ONE (07:15)
[2022-10-26] MEDS: Ensure Enlive Chocolate 8oz Bottle PO SCH ×3 (08:29→18:23)
[2022-10-26] MEDS ORDERED: POTASSIUM CHLORIDE 60 MEQ, LIDOCAINE 1% (LOCAL ANESTH.) 6 ML in SODIUM CHL 0.9% 500 ML IV ONE (09:15)
[2022-10-26] MEDS: PANTOPRAZOLE 40 MG/10 ML VIAL INJ IV SCH (09:54)
[2022-10-26] MEDS: HYDROmorphone HCL 2 MG/ML VL/or syr IV PRN ×4 (09:55→23:04)
[2022-10-26] MEDS: CHOLESTYRAMINE 4 GM POWDER PO SCH ×2 (10:30→23:00)
[2022-10-26] MEDS ORDERED: POTASSIUM ACETATE IV NR ×14 (11:30)
[2022-10-26] MEDS ORDERED: MORPHINE SULFATE INJ 2 MG/ml SYRG IV PRN (11:30)
[2022-10-26] MEDS ORDERED: FAT EMULSION IV NR ×7 (11:30)
[2022-10-26] MEDS ORDERED: TEMAZEPAM 15 MG CAP PO PRN (11:30)
[2022-10-26] MEDS ORDERED: OXYCODONE W/ ACETAMINOPHEN 5/325MG TABLET PO PRN (11:30)
[2022-10-26] MEDS ORDERED: POTASSIUM PHOSPHATE IV NR ×21 (11:30)
[2022-10-26] MEDS ORDERED: [UNRECOGNIZED DRUG - OTHER] IV NR ×7 (11:30)
[2022-10-26] MEDS ORDERED: [UNRECOGNIZED DRUG - OTHER] IV NR ×14 (11:30)
[2022-10-26] MEDS ORDERED: oxyCODONE ER 10 MG TAB PO SCH (11:30)
[2022-10-26] MEDS ORDERED: SODIUM CHLORIDE 0.9% 500 ML IV ONE (11:30)
[2022-10-26] MEDS ORDERED: POTASSIUM CHLORIDE IV NR ×21 (11:30)
[2022-10-26] MEDS ORDERED: NOREPINEPHRINE 8 MG/250ML KIT 250 ML IV SCH (11:30)
[2022-10-26] MEDS ORDERED: OLANZapine 5 MG TAB PO SCH (11:30)
[2022-10-26] MEDS: PROMETHAZINE HCL 25 MG/ML 1ML IV PRN ×2 (11:43→20:02)
[2022-10-26] MEDS ORDERED: SODIUM PHOSPHATES 20 MEQ in SODIUM CHL 0.9% 100 ML IV ONE (12:00)
[2022-10-26] MEDS ORDERED: ENOXAPARIN SOD 60 MG/0.6 ML SYRINGE SC ONE ×2 (15:00→16:00)
[2022-10-26] MEDS ORDERED: TPN PER PHARMACY IV NR ×8 (20:00)
[2022-10-26] MEDS: ENOXAPARIN SOD 60 MG/0.6 ML SYRINGE SC SCH (22:02)
[2022-10-27] VITALS (9 sets, daily range): BP systolic 90–105; BP diastolic 48–72
[2022-10-27] MEDS: OXYCODONE W/ ACETAMINOPHEN 5/325MG TABLET PO PRN ×3 (01:41→20:44)
[2022-10-27] MEDS: ONDANSETRON HCL 4 MG/2 ML VIAL IV PRN (01:41)
[2022-10-27] MEDS: SODIUM CHLORIDE 0.9% 1,000 ML IV SCH ×2 (02:15→22:00)
[2022-10-27] MEDS: HYDROmorphone HCL 2 MG/ML VL/or syr IV PRN ×2 (03:08→17:58)
[2022-10-27 04:02] LABS: Hematocrit 24.9 % (36.0-46.0); Hemoglobin 8.1 g/dL (12.2-16.2); Mean Corpuscular Hgb Conc. 32.7 g/dL (32.0-36.0); Mean Corpuscular Volume 91.6 fL (80.0-100.0); Red Blood Cells 2.72 10^6/uL (4.0-5.20); Red Cell Distribution Width 18.9 % (11.8-14.3); White Blood Cell 21.4 10^3/uL (4.4-10.8)
[2022-10-27 04:04] LABS: Basophils % (manual) 0 (0.0-2.0); Blast Cells 0; Metamyelocytes % 0; Promyelocytes % 0; Reactive Lymphocytes 0
[2022-10-27 04:18] LABS: BUN/Creatinine Ratio 62.1; Calcium 7.7 mg/dL (8.5-10.1)
[2022-10-27 04:20] LABS: Bilirubin, Total 2.4 mg/dL (0.2-1.0); Phosphorus 2.3 mg/dL (2.5-4.90); Total Protein 6.1 g/dL (6.4-8.2)
[2022-10-27] MEDS: PROMETHAZINE HCL 25 MG/ML 1ML IV PRN ×3 (05:01→17:44)
[2022-10-27] MEDS: InsuLIN REG 1unit/0.01ml Soln (100units/ml) SC SCH ×5 (06:00→23:57)
[2022-10-27] MEDS: MIDODRINE HCL 10 MG TAB PO SCH ×3 (06:13→17:43)
[2022-10-27] MEDS: D5W 5% IV SCH ×2 (06:18→18:27)
[2022-10-27] MEDS: ACCU-CHEK COMFORT CURVE STRIP VI SCH ×5 (06:18→23:57)
[2022-10-27] MEDS: SULFAMETH TRIMETH IV SCH ×2 (06:18→18:27)
[2022-10-27] MEDS: LEVOTHYROXINE SODIUM 100 MCG TAB PO SCH (06:23)
[2022-10-27 07:43] LABS: Band Neutrophils % (manual) 14; Eosinophils % (manual) 1 (0-7); Lymphocytes % (manual) 4 (10.0-50.0); Monocytes % (manual) 2 (0-12); Myelocytes % 3
[2022-10-27] MEDS ORDERED: FENT25DI2 TD ×2 (10:09)
[2022-10-27] MEDS ORDERED: APIX5TAB PO (10:09)
[2022-10-27] MEDS ORDERED: MID10T PO (10:09)
[2022-10-27] MEDS: CHOLESTYRAMINE 4 GM POWDER PO SCH ×2 (11:00→23:00)
[2022-10-27] MEDS: Ensure Enlive Chocolate 8oz Bottle PO SCH ×3 (11:12→17:59)
[2022-10-27] MEDS: PANTOPRAZOLE 40 MG/10 ML VIAL INJ IV SCH (11:13)
[2022-10-27] MEDS: ENOXAPARIN SOD 60 MG/0.6 ML SYRINGE SC SCH ×2 (11:13→22:06)
[2022-10-27] MEDS ORDERED: SODIUM PHOSPHATES 20 MEQ in SODIUM CHL 0.9% 100 ML IV ONE (11:30)
[2022-10-27] MEDS: fentaNYL 25MCG/HR 25 MCG/HR PAT TD SCH (15:13)
[2022-10-27] MEDS ORDERED: TPN PER PHARMACY IV NR ×16 (20:00)
[2022-10-28] MEDS: ONDANSETRON HCL 4 MG/2 ML VIAL IV PRN (00:03)
[2022-10-28] MEDS: HYDROmorphone HCL 2 MG/ML VL/or syr IV PRN (02:56)
[2022-10-28 04:43] VITALS: BP 106/64
[2022-10-28] MEDS: PROMETHAZINE HCL 25 MG/ML 1ML IV PRN ×2 (04:53→12:29)
[2022-10-28] MEDS: MIDODRINE HCL 10 MG TAB PO SCH ×2 (05:34→12:00)
[2022-10-28] MEDS: SULFAMETH TRIMETH IV SCH (05:35)
[2022-10-28] MEDS: D5W 5% IV SCH (05:35)
[2022-10-28] MEDS: ACCU-CHEK COMFORT CURVE STRIP VI SCH ×2 (05:41→12:07)
[2022-10-28] MEDS: InsuLIN REG 1unit/0.01ml Soln (100units/ml) SC SCH ×2 (05:42→12:00)
[2022-10-28] MEDS: LEVOTHYROXINE SODIUM 100 MCG TAB PO SCH (06:08)
[2022-10-28 06:12] LABS: Hematocrit 25.2 % (36.0-46.0); Hemoglobin 8.4 g/dL (12.2-16.2); Mean Corpuscular Hemoglobin 30.5 pg (28.0-32.0); Mean Corpuscular Hgb Conc. 33.5 g/dL (32.0-36.0); Red Blood Cells 2.77 10^6/uL (4.0-5.20); Red Cell Distribution Width 18.7 % (11.8-14.3); White Blood Cell 22.5 10^3/uL (4.4-10.8)
[2022-10-28 06:29] LABS: Basophils % (manual) 0 (0.0-2.0); Blast Cells 0; Potassium 3.4 mmol/L (3.5-5.1); Promyelocytes % 0
[2022-10-28 06:39] LABS: Albumin 2.9 g/dL (3.4-5.0); Bilirubin, Total 1.4 mg/dL (0.2-1.0); Calcium 7.9 mg/dL (8.5-10.1); Magnesium 2.5 mg/dL (1.6-2.6); Phosphorus 2.7 mg/dL (2.5-4.90); Total Protein 6.5 g/dL (6.4-8.2)
[2022-10-28 08:00] VITALS: BP 101/66
[2022-10-28] MEDS: Ensure Enlive Chocolate 8oz Bottle PO SCH ×2 (08:00→12:00)
[2022-10-28] MEDS: ENOXAPARIN SOD 60 MG/0.6 ML SYRINGE SC SCH (08:22)
[2022-10-28] MEDS: PANTOPRAZOLE 40 MG/10 ML VIAL INJ IV SCH (08:22)
[2022-10-28 08:23] LABS: Metamyelocytes % 2; Reactive Lymphocytes 1
[2022-10-28] MEDS: OXYCODONE W/ ACETAMINOPHEN 5/325MG TABLET PO PRN (08:23)
[2022-10-28 08:24] LABS: Band Neutrophils % (manual) 9; Eosinophils % (manual) 1 (0-7); Lymphocytes % (manual) 5 (10.0-50.0); Monocytes % (manual) 2 (0-12); Myelocytes % 3
[2022-10-28 09:00] VITALS: BP 101/66
[2022-10-28] MEDS ORDERED: HYDR-4902 PO (09:19)
[2022-10-28 09:44] LABS: INR 0.97 (0.9-1.15); Partial Thromboplastin Time 29.9 sec (24.6-33.4)
[2022-10-28] MEDS ORDERED: POTASSIUM EFFERVESENT TAB 25 MEQ PO ONE (10:15)
[2022-10-28] MEDS: CHOLESTYRAMINE 4 GM POWDER PO SCH (12:06)
[2022-10-28 13:00] VITALS: BP 100/62
[2022-10-28] MEDS ORDERED: CALCIUM GLUC 1,000mg/50ml-NS 50 ML IV ONE (14:15)
[2022-10-28] MEDS ORDERED: TPN PER PHARMACY IV NR ×9 (20:00)
== END 2022-10-28 15:09 | disposition left against medical advice (07) | DRG 137 ==
LOC: EDBD 10:47 → ER 10:47 → TELE 17:32 → ICU WEST 10-07 12:10 → TELE-CENTR 10-10 21:50 → ICU WEST 10-14 12:58 → TELE-CENTR 10-27 04:56
PROVIDERS: ADMIT Nurse Practitioner Family; ATTEND Internal Medicine Pulmonary Disease
PROC: 0W9G3ZZ Drainage of Peritoneal Cavity, Percutaneous Approach (ICD-10-PCS; principal; 2022-10-16)
PROC: 30233N1 Transfusion of Nonautologous Red Blood Cells into Peripheral Vein, Percutaneous Approach (ICD-10-PCS; 2022-10-16)
PROC: 0W9G3ZZ Drainage of Peritoneal Cavity, Percutaneous Approach (ICD-10-PCS; 2022-10-22)
PROC: 0W9G30Z Drainage of Peritoneal Cavity with Drainage Device, Percutaneous Approach (ICD-10-PCS; 2022-10-23)
PROC: 05H933Z Insertion of Infusion Device into Right Brachial Vein, Percutaneous Approach (ICD-10-PCS; 2022-10-24)
PROC: B54MZZA Ultrasonography of Right Upper Extremity Veins, Guidance (ICD-10-PCS; 2022-10-24)
PROC: 0W9G3ZZ Drainage of Peritoneal Cavity, Percutaneous Approach (ICD-10-PCS; 2022-10-28)
DX: J69.0 Pneumonitis due to inhalation of food and vomit (principal); J96.01 Acute respiratory failure with hypoxia; E43 Unspecified severe protein-calorie malnutrition; R34 Anuria and oliguria; G82.20 Paraplegia, unspecified; E87.20 Acidosis, unspecified; K72.90 Hepatic failure, unspecified without coma; D62 Acute posthemorrhagic anemia; I82.611 Acute embolism and thrombosis of superficial veins of right upper extremity; R18.8 Other ascites; C16.9 Malignant neoplasm of stomach, unspecified; I95.9 Hypotension, unspecified; N17.9 Acute kidney failure, unspecified; D64.81 Anemia due to antineoplastic chemotherapy; D72.819 Decreased white blood cell count, unspecified; E86.0 Dehydration; N13.30 Unspecified hydronephrosis; R19.7 Diarrhea, unspecified; B95.61 Methicillin susceptible Staphylococcus aureus infection as the cause of diseases classified elsewhere; Z53.29 Procedure and treatment not carried out because of patient's decision for other reasons; E87.6 Hypokalemia; R20.2 Paresthesia of skin; R79.89 Other specified abnormal findings of blood chemistry; I10 Essential (primary) hypertension; D72.829 Elevated white blood cell count, unspecified; E03.9 Hypothyroidism, unspecified; T45.1X5A Adverse effect of antineoplastic and immunosuppressive drugs, initial encounter; Z85.028 Personal history of other malignant neoplasm of stomach; Z90.3 Acquired absence of stomach [part of]; Z88.8 Allergy status to other drugs, medicaments and biological substances; Z68.1 Body mass index [BMI] 19.9 or less, adult; Y92.89 Other specified places as the place of occurrence of the external cause; Z82.49 Family history of ischemic heart disease and other diseases of the circulatory system; Z83.3 Family history of diabetes mellitus; Z87.01 Personal history of pneumonia (recurrent)
CPT/HCPCS: 36415; 36556; 36600; 70450; 71045; 71250; 74176; 76705; 76775; 76942; 80048; 80053; 80202; 81001; 82306; 82533; 82570; 82728; 82805; 82962; 83540; 83550; 83735; 83970; 83986; 84100; 84156; 84300; 84443; 84478; 85007; 85025; 85027; 85610; 85730; 86850; 86880; 86900; 86901; 86920; 87040; 87077; 87081; 87086; 87088; 87186; 87205; 87426; 87493; 89051; 93005; 93306; 93971; 96365; 97110; 97116; 97163; 97530; 99291; C9113; G0378; J0696; J2001; J2405; J3480; J3490; J7060; P9047

== ENCOUNTER 2022-11-03 09:45 | Inpatient (IN) | payer MEDICAID ==
[~2022-11-03] VITALS: Ht 157.5 cm; Wt 45.0 kg
[2022-11-03] VITALS (12 sets, daily range): BP systolic 62–116; BP diastolic 30–74
[~2022-11-03 09:45] MED LIST: APIX5TAB PO; BUPR10DI TOP; HYDR-4902 PO; LEVO200T PO; MID10T PO; OLAN5TAB4 PO
[2022-11-03] MEDS ORDERED: SODIUM BICARBONATE 8.4% INJ 50ML SYRINGE IV ONE ×2 (09:46→11:00)
[2022-11-03] MEDS ORDERED: DEXTROSE (50%) 50ML SYRG IV ONE ×2 (09:46→11:00)
[2022-11-03] MEDS ORDERED: NOREPINEPHRINE 8 MG/250ML KIT 250 ML IV ONE ×2 (10:07→13:28)
[2022-11-03] MEDS ORDERED: MIDAZOLAM DRIP 50 mg/50mL 50 ML IV ONE ×3 (10:07→17:07)
[2022-11-03] MEDS: NOREPINEPHRINE 8 MG/250ML KIT 250 ML IV SCH ×3 (10:20→20:29)
[2022-11-03 10:26] LABS: Hematocrit 17.4 % (36.0-46.0); Mean Corpuscular Hemoglobin 31.1 pg (28.0-32.0); Mean Corpuscular Hgb Conc. 31.9 g/dL (32.0-36.0); Mean Corpuscular Volume 97.7 fL (80.0-100.0); Red Blood Cells 1.78 10^6/uL (4.0-5.20); Red Cell Distribution Width 19.6 % (11.8-14.3); White Blood Cell 23.6 10^3/uL (4.4-10.8)
[2022-11-03 10:33] LABS: Basophils % (manual) 0 (0.0-2.0); Blast Cells 0; Eosinophils % (manual) 0 (0-7); Hemoglobin 5.5 g/dL (12.2-16.2); Myelocytes % 0; Promyelocytes % 0; Reactive Lymphocytes 0
[2022-11-03 10:39] LABS: Albumin 2.5 g/dL (3.4-5.0); BUN/Creatinine Ratio 32.9; Calcium 8.4 mg/dL (8.5-10.1); Magnesium 3.1 mg/dL (1.6-2.6)
[2022-11-03 10:40] LABS: Lactic Acid w/Reflex 13.2 mmol/L (0.4-2.0)
[2022-11-03 10:41] LABS: Bilirubin, Total 0.8 mg/dL (0.2-1.0); Total Protein 5.2 g/dL (6.4-8.2)
[2022-11-03 10:48] LABS: Potassium 7.9 mmol/L (3.5-5.1)
[2022-11-03] MEDS ORDERED: SODIUM CHLORIDE 0.9% 1,000 ML IV ONE ×2 (11:00)
[2022-11-03] MEDS ORDERED: CALCIUM GLUC 1,000mg/50ml-NS 50 ML IV ONE ×2 (11:00→19:15)
[2022-11-03] MEDS ORDERED: InsuLIN REG 1unit/0.01ml Soln (100units/ml) IV ONE (11:00)
[2022-11-03] MEDS: PHENYLEPHRINE IV 250 ML IV SCH ×3 (11:00→15:26)
[2022-11-03] MEDS ORDERED: SODIUM BICARBONATE 50ML VIAL 150 ML in D5W 5% 1,000 ML IV ONE (11:00)
[2022-11-03] MEDS ORDERED: SODIUM BICARBONATE 8.4 % INJ 50ML VIAL IV ONE ×2 (11:00→11:45)
[2022-11-03] MEDS ORDERED: PHENYLEPHRINE IV 250 ML IV ONE ×2 (11:20→21:27)
[2022-11-03 11:24] LABS: INR 1.05 (0.9-1.15); Partial Thromboplastin Time 46.2 sec (24.6-33.4)
[2022-11-03] MEDS: MIDAZOLAM DRIP 50 mg/50mL 50 ML IV SCH ×3 (11:34→22:02)
[2022-11-03] MEDS: FUROSEMIDE 20 MG/2 ML VIAL IV ONE ×2 (11:56→11:58)
[2022-11-03 11:58] LABS: Band Neutrophils % (manual) 9; Lymphocytes % (manual) 13 (10.0-50.0); Metamyelocytes % 1; Monocytes % (manual) 1 (0-12)
[2022-11-03] MEDS ORDERED: cefTRIAXone 1GM/50ML D5W 50 ML IV ONE (13:00)
[2022-11-03] MEDS ORDERED: AZITHROMYCIN 500MG/ 250ML 250 ML IV ONE (13:00)
[2022-11-03] MEDS ORDERED: PANTOPRAZOLE 40mg/50ML NS AE 50 ML IV ONE (13:00)
[2022-11-03] MEDS: VASOPRESSIN 20 UNITS in SODIUM CHL 0.9% 99 ML IV SCH (13:30)
[2022-11-03] MEDS ORDERED: FUROSEMIDE 40 MG/4 ML VIAL IV ONE (14:15)
[2022-11-03] MEDS ORDERED: PANTOPRAZOLE 40mg/50ML NS AE 50 ML IV SCH (16:30)
[2022-11-03] MEDS ORDERED: VANCOMYCIN PER PHARMACY 0 MG IV SCH (16:30)
[2022-11-03] MEDS ORDERED: SODIUM BICARBONATE 50ML VIAL 100 ML in D5W 5% 1,000 ML IV ONE (16:45)
[2022-11-03] MEDS ORDERED: IPRATROPIUM BROM 0.5 MG/2.5ML INH SOL NEB PRN (16:45)
[2022-11-03] MEDS ORDERED: VANCOMYCIN 1GM/250ML 250 ML IV ONE (17:00)
[2022-11-03] MEDS ORDERED: ALBUTEROL MEDNEB 2.5 mg/3ml NEB NEB PRN (17:00)
[2022-11-03] MEDS ORDERED: ALBUTEROL MEDNEB 2.5 mg/3ml NEB NEB SCH (18:00)
[2022-11-03] MEDS ORDERED: IPRATROPIUM BROM 0.5 MG/2.5ML INH SOL NEB SCH (18:00)
[2022-11-03 18:14] LABS: Hemoglobin 11.5 g/dL (12.2-16.2)
[2022-11-03 18:27] LABS: BUN/Creatinine Ratio 40.4; Potassium 4.5 mmol/L (3.5-5.1)
[2022-11-03] MEDS: PANTOPRAZOLE 40mg/50ML NS AE 50 ML IV SCH (20:19)
[2022-11-03] MEDS ORDERED: PHENYLEPHRINE INJ 80 MG in SODIUM CHL 0.9% 242 ML IV SCH (20:45)
[2022-11-03] MEDS ORDERED: NOREPINEPHRINE BITARTRATE 32 MG in SODIUM CHL 0.9% 218 ML IV SCH (20:45)
[2022-11-03] MEDS ORDERED: SODIUM CHLORIDE 0.9% 1,000 ML IV SCH (21:30)
[2022-11-04 00:03] VITALS: BP 77/60
[2022-11-04] MEDS ORDERED: VASOPRESSIN 20 UNIT/ML ONE (00:14)
[2022-11-04 00:15] VITALS: BP 143/99
[2022-11-04] MEDS: VASOPRESSIN 20 UNITS in SODIUM CHL 0.9% 99 ML IV SCH (00:18)
[2022-11-04] MEDS: PANTOPRAZOLE 40mg/50ML NS AE 50 ML IV SCH (00:35)
[2022-11-04 01:23] LABS: Urine Bacteria NONE SEEN /hpf (None Seen); Urine Blood 3+ /uL (Negative); Urine Budding Yeast LOADED /hpf (None Seen); Urine Mucus FEW (None Seen); Urine Specific Gravity 1.012 (1.001-1.035); Urine WBC 54 /hpf (0 - 5); Urine WBC Clumps PRESENT /hpf (None Seen)
[2022-11-04 01:24] LABS: Protein, Urine 89.3 mg/dL (0.0-11.9)
[2022-11-04 01:45] VITALS: BP 143/99
[2022-11-04 02:00] VITALS: BP 144/108
[2022-11-04 02:12] LABS: Hematocrit 35.3 % (36.0-46.0); Hemoglobin 11.6 g/dL (12.2-16.2)
[2022-11-04 02:30] VITALS: BP 176/116
[2022-11-04 02:56] LABS: BUN/Creatinine Ratio 40.4; Potassium 4.9 mmol/L (3.5-5.1)
[2022-11-04 02:58] LABS: Calcium 5.8 mg/dL (8.5-10.1)
[2022-11-04] MEDS ORDERED: CEFEPIME 1GM/ 50ML 50 ML IV SCH (10:00)
== END 2022-11-04 08:05 | DRG 720 ==
LOC: ER 09:45 → TELE 16:42 → ICU WEST 23:50
PROVIDERS: ADMIT Registered Nurse; ATTEND Registered Nurse
PROC: 5A1945Z Respiratory Ventilation, 24-96 Consecutive Hours (ICD-10-PCS; principal; 2022-11-03)
PROC: 30233N1 Transfusion of Nonautologous Red Blood Cells into Peripheral Vein, Percutaneous Approach (ICD-10-PCS; 2022-11-03)
PROC: 0BH17EZ Insertion of Endotracheal Airway into Trachea, Via Natural or Artificial Opening (ICD-10-PCS; 2022-11-03)
DX: A41.9 Sepsis, unspecified organism (principal); I46.9 Cardiac arrest, cause unspecified; J96.90 Respiratory failure, unspecified, unspecified whether with hypoxia or hypercapnia; R65.21 Severe sepsis with septic shock; J18.9 Pneumonia, unspecified organism; N17.9 Acute kidney failure, unspecified; E43 Unspecified severe protein-calorie malnutrition; C16.9 Malignant neoplasm of stomach, unspecified; D62 Acute posthemorrhagic anemia; J93.9 Pneumothorax, unspecified; R74.01 Elevation of levels of liver transaminase levels; K92.2 Gastrointestinal hemorrhage, unspecified; E03.9 Hypothyroidism, unspecified; E87.5 Hyperkalemia; Z66 Do not resuscitate; Z68.1 Body mass index [BMI] 19.9 or less, adult; Z85.028 Personal history of other malignant neoplasm of stomach; Z90.3 Acquired absence of stomach [part of]; Z88.8 Allergy status to other drugs, medicaments and biological substances; Z92.21 Personal history of antineoplastic chemotherapy
CPT/HCPCS: 31500; 36415; 36600; 70450; 71045; 71250; 72125; 74176; 80048; 80053; 81001; 82570; 82805; 83605; 83735; 84156; 84300; 84484; 85007; 85014; 85018; 85027; 85610; 85730; 86850; 86900; 86901; 86920; 87040; 87070; 87077; 87081; 87186; 87205; 87426; 93005; 96365; 96366; 99291; G0378; J0696; J1815; J2250